=== PATIENT | female | born 1950 | race Caucasian/White ===

== ENCOUNTER → 2016-04-09 | Outpatient (CLI) | payer BC ==
[~2016-04-09] MED LIST: ASPEC325 PO; CLC100 PO; MEDLIST; MULT-506 PO; OMEG10007 PO; OXYC-57 PO; SULF800T23 PO; THY/60 PO
--- NOTE | 2016-04-09 09:38 | DIAGNOSTIC IMAGING REPORT ---
RIGHT LOWER EXTREMITY VENOUS DOPPLER CLINICAL HISTORY: Right leg pain and swelling. COMPARISON STUDY: No previous studies for comparison. TECHNIQUE: Sonography of the deep venous system of the right lower extremity was performed. Compression and augmentation were evaluated. FINDINGS: The right common femoral, superficial femoral and popliteal veins were compressible. Augmentation was normal. Flow was shown within the deep calf vessels. IMPRESSION: No evidence of deep venous thrombus within the right lower extremity. Electronically signed by: Delon Philippe M.D. 04/09/2016 9:36 AM Dictated Date/Time: 04/09/2016 9:17 AM
== END | disposition home or self-care (01) ==
LOC: C.ULTR 08:57
PROVIDERS: ATTEND Family Medicine
DX: M79.661 Pain in right lower leg (principal)

== ENCOUNTER → 2016-04-09 | Outpatient (CLI) | payer BC ==
--- NOTE | 2016-04-09 08:50 | DIAGNOSTIC IMAGING REPORT ---
RIGHT HIP UNILATERAL 2 VIEWS CLINICAL HISTORY: Right hip pain. COMPARISON: None FINDINGS: Alignment of the right hip is anatomic. There is no acute fracture. Joint spaces preserved. There is mild osteophytosis. No osseous lesion is identified. IMPRESSION: 1. Mild osteoarthritis of the right hip. 2. No fracture. Electronically signed by: Delon Philippe M.D. 04/09/2016 8:48 AM Dictated Date/Time: 04/09/2016 8:47 AM
== END | disposition home or self-care (01) ==
LOC: C.RAD1850 08:34
PROVIDERS: ATTEND Family Medicine
DX: M16.11 Unilateral primary osteoarthritis, right hip (principal); M79.661 Pain in right lower leg

== ENCOUNTER → 2016-05-08 | Outpatient (CLI) | payer BC | END | disposition home or self-care (01) | LOC: C.PAPS 14:41 | PROVIDERS: ATTEND Obstetrics & Gynecology | DX: Z12.4 Encounter for screening for malignant neoplasm of cervix (principal) ==

== ENCOUNTER → 2016-08-06 | Outpatient (CLI) | payer BC | END | disposition home or self-care (01) | LOC: C.LAB 08:30 | PROVIDERS: ATTEND Family Medicine | DX: R53.81 Other malaise (principal) ==

== ENCOUNTER → 2016-11-20 | Outpatient (CLI) | payer BC ==
--- NOTE | 2016-11-20 16:08 | MAMMOGRAPHY REPORT ---
UNILATERAL LEFT DIGITAL SCREENING MAMMOGRAM TOMOSYNTHESIS WITH CAD: 11/20/2016 CLINICAL HISTORY: Asymptomatic. Personal history of breast cancer. TECHNIQUE: Breast tomosynthesis in addition to standard 2D mammography was performed. Current study was also evaluated with a Computer Aided Detection (CAD) system. Left CC and MLO 2-D and tomosynthes is images were obtained. COMPARISON: Comparison is made to exams dated: 11/05/2015 mammogram, 10/29/2014 mammogram, 10/23/2013 art mogram, 10/17/2012 mammogram, 02/17/2012 mammogram, and 01/21/2011 mammogram - [facility] enter. BREAST COMPOSITION: There are scattered areas of fibroglandular density in the left breast. FINDINGS: There are no suspicious masses, calcifications, or areas of architectural distortion noted within the left breast. There has been no significant interval change compared to prior exams. Two biopsy marker clips are again noted in the left upper outer quadrant. Surgical clips are also noted in the left upper outer quadrant. A few scattered benign-appearing calcifications are stable. IMPRESSION: ACR BI-RADS CATEGORY 2: BENIGN There is no mammographic evidence of malignancy. A 1 year screening mammogram is recommended. The pa tient will receive written notification of the results. Approximately 10% of breast cancers are not detected with mammography. A negative mammographic report should not delay biopsy if a clinically suggestive mass is present. Manisha Guevara M.D. /:11/20/2016 15:43:27 Bottle Labeler: Ari FIERRO)(Talya), [facility] letter sent: Normal 1/2 BI-RADS Code: ACR BI-RADS Category 2: Benign
== END | disposition home or self-care (01) ==
LOC: C.MAMM 14:04
PROVIDERS: ATTEND Family Medicine
DX: Z12.31 Encounter for screening mammogram for malignant neoplasm of breast (principal); Z85.3 Personal history of malignant neoplasm of breast; Z90.11 Acquired absence of right breast and nipple

== ENCOUNTER → 2017-11-08 | Outpatient (CLI) | payer BC ==
--- NOTE | 2017-11-08 10:46 | DIAGNOSTIC IMAGING REPORT ---
L-SPINE MIN 4 VIEWS ROUTINE HISTORY: Pain LOWER BACK PAIN COMPARISON: None. FINDINGS: There is no fracture. Mild scoliosis. Mild/moderate degenerative disc change throughout. IMPRESSION: Degenerative change. No acute process. The above report was generated using voice recognition software. It may contain grammatical, syntax or spelling errors. Electronically signed by: Seb Chicas M.D. 11/08/2017 10:45 AM Dictated Date/Time: 11/08/2017 10:44 AM
== END | disposition home or self-care (01) ==
LOC: C.RAD1850 10:31
PROVIDERS: ATTEND Family Medicine
DX: M54.5 Low back pain (principal)

== ENCOUNTER 2019-01-30 17:49 | Inpatient (IN) ==
[2019-01-30 18:48] LABS: Basophils # (auto) 0.03 K/uL (0-0.2); Basophils % (auto) 0.2 %; Eosinophils # (auto) 0.03 K/uL (0-0.5); Eosinophils % (auto) 0.2 %; Hematocrit (blood only) 42.6 % (37-47); Hemoglobin 14.8 g/dL (12.0-16.0); Immature Granulocytes # (auto) 0.04 K/uL (0.00-0.02); Immature Granulocytes % (auto) 0.3 %; Lymphocytes # (auto) 1.68 K/uL (1.2-3.4); Lymphocytes % (auto) 10.8 %; Mean Corpuscular Hemoglobin 32.8 pg (25-34); Mean Corpuscular Hgb Conc 34.7 g/dL (32-36); Mean Corpuscular Volume 94.5 fL (80-100); Mean Platelet Volume 9.1 fL (7.4-10.4); Monocytes # (auto) 0.82 K/uL (0.11-0.59); Monocytes % (auto) 5.3 %; Neutrophils # (auto) 12.97 K/uL (1.4-6.5); Neutrophils % (auto) 83.2 %; Platelet Count 209 K/uL (130-400); RDW Standard Deviation 48.5 fL (36.4-46.3); Red Blood Count 4.51 M/uL (4.2-5.4); White Blood Count 15.57 K/uL (4.8-10.8)
--- NOTE | 2019-01-30 18:48 | CT Scan Report ---
CT abd pelvis wo con CT DOSE: 299.83 mGy.cm HISTORY: Flank pain RLQ pain eval for stone/appe TECHNIQUE: Multiaxial CT images of the abdomen and pelvis were performed without contrast. A dose lo wering technique was utilized adhering to the principles of ALARA. COMPARISON STUDY: None. FINDINGS: Lungs are clear. Liver spleen and pancreas are unremarkable. Kidneys are considered negative for hydronephrosis. No evidence for gallbladder contraction. The upper abdominal pattern is nonobstructive. There are moderate infiltrative changes in the right lower quadrant. The appendix moderately distende d and contains a 8 mm appendicolith. Maximum diameter of the appendix is 8 mm. There is moderate periappendiceal infiltrative change. No evidence for abscess collection or obstruction. Bladder is midline. There is no free fluid within the pelvic cul-de-sac. IMPRESSION: 1. Acute appendicitis. 2. The appendix demonstrates an increased diameter to 8 mm, an appendicolith, as well as moderate per iappendiceal infiltrative change. 3. No evidence for abscess collection or obstruction. The above report was generated using voice recognition software. It may contain grammatical, syntax or spelling errors. Electronically signed by: Seb Chicas M.D. 01/30/2019 6:45 PM
[2019-01-30 19:02] LABS: Albumin Level 3.6 gm/dl (3.4-5.0); BUN Creatinine Ratio 17.4 (10-20); Calcium 9.5 mg/dl (8.5-10.1); Creatinine Clr Calc Pharmacy 67.9 ml/min; Est GFR (African American) 103.2; Potassium 3.6 mmol/L (3.5-5.1)
[2019-01-30 19:05] LABS: Albumin Globulin Ratio 1.1 (0.9-2); Bilirubin,Total 0.6 mg/dl (0.2-1); Globulin 3.4 gm/dl (2.5-4.0)
--- NOTE | 2019-01-30 19:10 | XRay Report ---
XR chest 1V portable CLINICAL HISTORY: preop COMPARISON STUDY: No previous studies for comparison. FINDINGS: The bones soft tissues and hemidiaphragms are normal. The cardiomediastinal silhouette is n ormal. The lungs are clear. The pulmonary vasculature is normal. IMPRESSION: Negative chest. The above report was generated using voice recognition software. It may contain grammatical, syntax or spelling errors. Electronically signed by: Seb Chicas M.D. 01/30/2019 7:09 PM
[2019-01-30 19:15] LABS: Appearance Urine Clear (Clear); Bacteria Urine Automated Negative (Negative); Bilirubin Urine Negative (Negative); Blood Urine Trace (Negative); Color Urine Yellow; Glucose Urine UA Negative (Negative); Ketones Urine 1+ (Negative); Leukocyte Esterase Urine Trace (Negative); Nitrite Urine Negative (Negative); Protein Urine Negative (Negative); Specific Gravity Urine 1.015 (1.000-1.030); Urobilinogen Urine Negative (Negative); pH Urine 6.5 (4.5-7.5)
--- NOTE | 2019-01-30 19:54 | History & Physical Report ---
Date of Service January 30, 2019 Assessment & Plan (1) Appendicitis: This patient's history, physical exam, laboratory data and CT scan of which I reviewed the images as well as the report are all consistent with acute appendicitis with an appendicolith. I recommended laparoscopic appendectomy. I explained the possible need to convert to an open procedure. I explained the possible complications associated with these procedures and she understands. She has signed a consent form. History of Present Illness Chief Complaint: Right lower quadrant pain Primary Care Provider: Jaqueline Ortiz DO This is a 68-year-old female who presented to the emergency room with complaint of right lower quadrant pain that began 2 days ago. It was intermittent at first but then it became more continuous and located in the right lower quadrant. It is sharp at times but it is mostly a dull ache. It radiates around to her back on occasion. She has never had pain like this before. It is exacerbated by motion. She has no fever or chills with this. She had no nausea or vomiting. She had diarrhea this morning but there was no melena or hematoc hezia. She denies dysuria and hematuria. Allergies Allergy/AdvReac Type Severity Reaction Status Date / Time Penicillins Allergy Intermediate RASH Verified 01/30/19 19:48 Home Medications Home Medications Medication Instructions Recorded Confirmed Type Thyroid Supplement 1 tab PO DAILY 01/30/19 01/30/19 History calcium carb-magnesium carb 1 tab PO DAILY 01/30/19 01/30/19 History cholecalciferol (vitamin D3) 0 unit PO DAILY 01/30/19 01/30/19 History [Vitamin D3] multivitamin 1 tab PO DAILY 01/30/19 01/30/19 History Past Med/Surg History Social History Feels Safe at Home: Yes Smoking Status: Former smoker Physical Exam Constitutional: no acute distress Respiratory: normal respiratory effort, lungs clear to auscultation Cardiovascular: Rate/Rhythm: regular rate and regular rhythm Gastrointestinal (Abdomen): Inspection/Auscultation: abdomen normal to inspection; abdomen not distended Percussion/Palpation: + abdomen tender (Right lower quadrant) and abdomen soft Skin: no rashes, warm and dry Lymphatic: no cervical lymphadenopathy Results & Data Vital Signs (Past 12 Hours) Vital Signs Temp Pulse Resp BP Pulse Ox 01/30/19 18:34 96 01/30/19 17:45 37.3 C 99 H 18 146/92 H 97 Laboratory Results 01/30/19 01/30/19 01/30/19 Range/Units 18:31 18:31 17:22 WBC 15.57 H (4.8-10.8) K/uL RBC 4.51 (4.2-5.4) M/uL Hgb 14.8 (12.0-16.0) g/dL Hct 42.6 (37-47) % MCV 94.5 (80-100) fL MCH 32.8 (25-34) pg MCHC 34.7 (32-36) g/dL RDW Std Deviation 48.5 H (36.4-46.3) fL RDW Coeff of Mihir 14.0 (11.5-14.5) % Plt Count 209 (130-400) K/uL MPV 9.1 (7.4-10.4) fL Immature Gran % (Auto) 0.3 % Neut % (Auto) 83.2 % Lymph % (Auto) 10.8 % [place] % (Auto) 5.3 % Eos % (Auto) 0.2 % Baso % (Auto) 0.2 % Immature Gran # (Auto) 0.04 H (0.00-0.02) K/uL Neut # (Auto) 12.97 H (1.4-6.5) K/uL Lymph # (Auto) 1.68 (1.2-3.4) K/uL [place] # (Auto) 0.82 H (0.11-0.59) K/uL Eos # (Auto) 0.03 (0-0.5) K/uL Baso # (Auto) 0.03 (0-0.2) K/uL Sodium 137 (136-145) mmol/L Potassium 3.6 (3.5-5.1) mmol/L Chloride 105 (98-107) mmol/L Carbon Dioxide 23 (21-32) mmol/L Anion Gap 9.0 (3-11) BUN 12 (7-18) mg/dl Creatinine 0.70 (0.6-1.2) mg/dl Est Cr Clr Drug Dosing 67.9 ml/min Est GFR ( Amer) 103.2 Est GFR (Non-Af Amer) 89.0 BUN/Creatinine Ratio 17.4 (10-20) Glucose 127 H (70-99) mg/dl Calcium 9.5 (8.5-10.1) mg/dl Total Bilirubin 0.6 (0.2-1) mg/dl AST 8 L (15-37) U/L ALT 23 (12-78) U/L Alkaline Phosphatase 58 (45-117) U/L Total Protein 7.0 (6.4-8.2) gm/dl Albumin 3.6 (3.4-5.0) gm/dl Globulin 3.4 (2.5-4.0) gm/dl Albumin/Globulin Ratio 1.1 (0.9-2) Lipase 62 L (73-393) U/L Urine Color Yellow Urine Appearance Clear (Clear) Urine pH 6.5 (4.5-7.5) Ur Specific [place] 1.015 (1.000-1.030) Urine Protein Negative (Negative) Urine Glucose (UA) Negative (Negative) Urine Ketones 1+ H (Negative) Urine Blood Trace H (Negative) Urine Nitrite Negative (Negative) Urine Bilirubin Negative (Negative) Urine Urobilinogen Negative (Negative) Ur Leukocyte Esterase Trace H (Negative) Urine WBC (Auto) 1-5 (0-5) /hpf Urine RBC (Auto) 5-10 H (0-4) /hpf U Hyaline Cast (Auto) 1-5 (0-5) /lpf U Epithel Cells (Auto) 5-10 H (0-5) /lpf Urine Bacteria (Auto) Negative (Negative) Diagnostic Findings CT abd pelvis wo con CT DOSE: 299.83 mGy.cm HISTORY: Flank pain RLQ pain eval for stone/appe TECHNIQUE: Multiaxial CT images of the abdomen and pelvis were performed without contrast. A dose lowering technique was utilized adhering to the principles of ALARA. COMPARISON STUDY: None. FINDINGS: Lungs are clear. Liver spleen and pancreas are unremarkable. Kidneys are considered negative for hydronephrosis. No evidence for gallbladder contraction. The upper abdominal pattern is nonobstructive. There are moderate infiltrative changes in the right lower quadrant. The appendix moderately distended and contains a 8 mm appendicolith. Maximum diameter of the appendix is 8 mm. There is moderate periappendiceal infiltrative change. No evidence for abscess collection or obstruction. Bladder is midline. There is no free fluid within the pelvic cul-de-sac. IMPRESSION: 1. Acute appendicitis. 2. The appendix demonstrates an increased diameter to 8 mm, an appendicolith, as well as moderate periappendiceal infiltrative change. 3. No evidence for abscess collection or obstruction.
[2019-01-30] MEDS ORDERED: fentaNYL citrate 100 MCG/2 ML VIAL IV PRN (20:02)
[2019-01-30] MEDS ORDERED: ONDANSETRON INJ 2 MG/ML 2 ML VIAL IV PRN ×2 (20:02→22:41)
[2019-01-30] MEDS ORDERED: PROMETHAZINE HCL 6.25 MG in SODIUM CHLORIDE 0.9% 50 ML IV PRN (20:02)
[2019-01-30] MEDS ORDERED: ATROPINE SULFATE 0.1 MG/ML 10ML SYR IV PRN (20:02)
[2019-01-30] MEDS ORDERED: ePHEDrine sulfate 50 MG/ML AMP IV PRN (20:02)
--- NOTE | 2019-01-30 20:05 | Anesthesiology Consultation ---
Date of Service January 30, 2019 hypothyroidism Assessment & Plan (1) Appendicitis: Chart Review Chart Review: Acceptable Risk for Surgery and Patient NOT seen in Pre Admission Testing Consults Requested none Teaching & Discussion Patient desires a narcotic free anesthetic, concerned about hx of nausea with narcotics. We will do our best to provide this, but will make short acting narcotics available in pacu. ASA [id number] Proposed Anesthesia Risk / Benefits Reviewed With: PT / POA / Parent / Guardian, Accepts Plan and Informed Consent Obtained History Surgery Operation Date: 01/30/19 20:00 Proposed Procedures p Laparoscopic Appendectomy - Seb Parr MD Height/Weight Height: 5 ft 2.5 in Weight: 63 kg Allergies Allergy/AdvReac Type Severity Reaction Status Date / Time Penicillins Allergy Intermediate RASH Verified 01/30/19 19:48 Medications Home Medications Medication Instructions Recorded Confirmed Last Taken Thyroid Supplement 1 tab PO DAILY 01/30/19 01/30/19 Unknown calcium carb-magnesium carb 1 tab PO DAILY 01/30/19 01/30/19 Unknown cholecalciferol (vitamin D3) 0 unit PO DAILY 01/30/19 01/30/19 Unknown [Vitamin D3] multivitamin 1 tab PO DAILY 01/30/19 01/30/19 Unknown NPO Date Last Intake of Fluids: 01/30/19 Time Last Intake of Fluids: 16:45 Last Intake of Fluids Comment: sips of water Date Last Intake of Solids: 01/30/19 Time Last Intake of Solids: 11:00 Last Intake of Solids Comment: sandwhich Exercise / Class Metabolic Activity II 4-5 Yardwork/Stairs/Walk up hill Past Anesthesia History No Hx of Anesthesia Complications and No Family Hx of Anesthesia Complications History of PONV No Hx of PONV and No Hx of Motion Sickness Social History Smoking Status: Former smoker Physical Exam Vital Signs Last Vital Signs Temp 37.3 C 01/30/19 17:45 Pulse 78 01/30/19 19:52 Resp 20 01/30/19 19:52 BP 153/103 H 01/30/19 19:52 Pulse Ox 98 01/30/19 19:52 ENMT Mouth: no dentition abnormality Thyromental Distance: > or= 3.5 Finger Breadths Mallampati Class: II Neck normal visual inspection Respiratory normal respiratory effort Auscultation: lungs clear to auscultation bilaterally Cardiovascular Rate/Rhythm: regular rate and regular rhythm Psychiatric Orientation: alert Testing Laboratory Results 01/30/19 18:31 01/30/19 18:31 Urine Color Yellow 01/30/19 17:22 Urine Appearance Clear (Clear) 01/30/19 17:22 Urine pH 6.5 (4.5-7.5) 01/30/19 17:22 Ur Specific [place] 1.015 (1.000-1.030) 01/30/19 17:22 Urine Protein Negative (Negative) 01/30/19 17:22 Urine Glucose (UA) Negative (Negative) 01/30/19 17:22 Urine Ketones 1+ (Negative) H 01/30/19 17:22 Urine Nitrite Negative (Negative) 01/30/19 17:22 Ur Leukocyte Esterase Trace (Negative) H 01/30/19 17:22 Urine WBC (Auto) 1-5 /hpf (0-5) 01/30/19 17:22 Urine RBC (Auto) 5-10 /hpf (0-4) H 01/30/19 17:22 U Hyaline Cast (Auto) 1-5 /lpf (0-5) 01/30/19 17:22 U Epithel Cells (Auto) 5-10 /lpf (0-5) H 01/30/19 17:22 Urine Bacteria (Auto) Negative (Negative) 01/30/19 17:22
[2019-01-30] MEDS ORDERED: PHENYLEPHRINE HCL 10 MG/ML VIAL ONE (20:06)
[2019-01-30] MEDS ORDERED: ePHEDrine sulfate 50 MG/ML AMP ONE (20:06)
[2019-01-30] MEDS ORDERED: SUCCINYLCHOLINE CHLORIDE 20 MG/ML 10 ML VIAL ONE (20:06)
[2019-01-30] MEDS ORDERED: DEXAMETHASONE SOD INJ 4 MG/ML VIAL ONE (20:06)
[2019-01-30] MEDS ORDERED: ONDANSETRON INJ 2 MG/ML 2 ML VIAL ONE (20:06)
[2019-01-30] MEDS ORDERED: GLYCOPYRROLATE 0.2 MG/ML VIAL ONE (20:06)
[2019-01-30] MEDS ORDERED: LIDOCAINE HCL 2% 2 ML VIAL/AMP(20MG/ML) INFIL ONE ×2 (20:06→20:40)
[2019-01-30] MEDS ORDERED: PROPOFOL IV EMULSION 10 MG/ML 20 ML VIAL IV ONE (20:06)
[2019-01-30] MEDS ORDERED: NEOSTIGMINE METHYLSULFATE 5 MG/5 ML SYR ONE (20:06)
[2019-01-30] MEDS ORDERED: fentaNYL citrate 100 MCG/2 ML VIAL ONE (20:07)
[2019-01-30] MEDS ORDERED: KETAMINE HCL INJ 50 MG/ML 10 ML VIAL ONE (20:12)
[2019-01-30] MEDS ORDERED: BUPIVACAINE 0.5 % 5 MG/1 ML MPF 30ML VIAL ONE (20:15)
[2019-01-30] MEDS ORDERED: HEPARIN (PORCINE) 1000 UNIT/ML 10 ML (CATH LAB USE ONLY) ONE (20:15)
[2019-01-30] MEDS ORDERED: ACETAMINOPHEN 1000 MG/100 ML IV IV ONE (20:19)
[2019-01-30] MEDS ORDERED: CLINDAMYCIN PHOS 300 MG/2 ML VIAL ONE (20:24)
[2019-01-30] MEDS ORDERED: CLINDAMYCIN 900 MG in DEXTROSE 5% 100 ML IV SCH (20:30)
[2019-01-30] MEDS ORDERED: METOPROLOL TARTRATE 1 MG/ML VIAL IV ONE (20:40)
[2019-01-30] MEDS ORDERED: ESMOLOL HCL INJ 10 MG/ML 10ML VIAL IV ONE (20:40)
--- NOTE | 2019-01-30 21:19 | Post Operative Brief Note ---
Immediate Post Op Note v1 Date of Surgery January 30, 2019 Pre & Post Diagnosis Operation Date: 01/30/19 20:00 Pre-Op Diagnosis: Appendicitis Post-Op Diagnosis: Appendicitis I identified the patient and participated in the time-out.: Yes Procedure Operation Date: 01/30/19 20:00 Actual Procedures p Laparoscopic Appendectomy(Not Applicable) - Seb Parr MD Surgeon Seb Parr MD Assistant Professor Of Nursing None Estimated Blood Loss 7 Findings Consistent with Post-Op Diagnosis Specimens Apppendix Drains Kurtz Catheter and Igor-Saha Drain (10 mm flat) Anesthesia Type General Complications none
--- NOTE | 2019-01-30 21:48 | Anesthesiology Progress Note ---
Date of Service January 30, 2019 Anesthesia Post Procedure Vital Signs Vital Signs: Temp Pulse Pulse Resp BP BP Pulse Ox 01/30/19 21:45 76 16 131/63 100 01/30/19 21:35 78 18 130/70 100 01/30/19 21:28 36.2 C L 94 H 20 131/72 100 01/30/19 19:52 78 20 153/103 H 98 01/30/19 18:34 96 01/30/19 17:45 37.3 C 99 H 18 146/92 H 97 Pain Intensity Abdomen: Pain Intensity: 4 Transfer of Care Handoff Completed per policy Notes Mental Status: alert / awake / arousable Patient Amnestic to Procedure: Yes Nausea / Vomiting: adequately controlled Pain: adequately controlled Airway Patency, RR, SpO2: stable & adequate BP & HR: stable & adequate Hydration State: stable & adequate Anesthetic Complications: no major complications apparent
[2019-01-30] MEDS ORDERED: KETOROLAC 30 MG/ML VIAL IV PRN (22:51)
[2019-01-30] MEDS ORDERED: KETOROLAC TROMETHAMINE 15 MG/ML VIAL IV PRN (22:52)
--- NOTE | 2019-01-30 23:13 | Emergency Department Note ---
Entered by Lexi Howard acting as a scribe for Abelardo Tang MD History of Present Illness General Chief complaint: Abdominal Pain Stated complaint: LOWER RIGHT AB PAIN Source: patient History of Present Illness Onset (ago): day(s) 2 Location: abdomen (RLQ pain) Radiation: back (right side) Severity: severe Pain Consistency: + intermittent Maximum Pain Intensity: 6 Quality: + sharp and + other (cramping) Relieved By: + movement and + other (bowel movement) Associated symptoms: + denies other symptoms (hematuria, dysuria, frequent urination) and + other (diarrhea); no fever/chills and no nausea/vomiting The patient is a 68 year old female with no PMHx indicated on Evomail who presents to the Emergency Room with complaints of RLQ pain. The patient explains that she began to experience intense intermittent RLQ pain 2 days ago at 6PM. She also reports associated diarrhea and feeling "bottled up with gas". She describes this pain as a sharp "pin" with heavy cramping that radiates to the right side of her back. 1 day ago she reports that she couldn't eat due to pain. However, today she states that she managed to get up and eat a sandwich at 11AM and drank a lot of water which did not worsen her pain.The patient explains that she feels better in the mornings and that this morning she felt a lot better than the past 2 days. She also states that she finds relief from her pain after passing stool and with movement. The patient reports that today her abdomen feels tender to touch. Of note, she states that she still has her appendix and is currently not treated for HTN. She denies hematuria, dysuria, frequent urin ation, vomiting, hematochezia, known fever, history of kidney stones, or recent travel. Additionally, she reports that her is not experiencing the same diarrheal symptoms, The patient offers no additional complaints at this time. Home Medications Home Medications Medication Instructions Recorded Confirmed Type Thyroid Supplement 1 tab PO DAILY 01/30/19 01/30/19 History calcium carb-magnesium carb 1 tab PO DAILY 01/30/19 01/30/19 History cholecalciferol (vitamin D3) 0 unit PO DAILY 01/30/19 01/30/19 History [Vitamin D3] multivitamin 1 tab PO DAILY 01/30/19 01/30/19 History Allergies Allergy/AdvReac Type Severity Reaction Status Date / Time Penicillins Allergy Intermediate RASH Verified 01/30/19 19:48 Past Med/Surg History Medical History No significant past medical history Social History Preferred Language: Greenlandic Communication Ability: Effective Thread Clipper Required: No Beliefs That Will Affect Care: None Current Living Situation: Spouse Feels Safe at Home: Yes Safety Concerns: Feels Safe At This Time Smoking Status: Former smoker Hx Alcohol Use: Yes Alcohol type: beer and wine Hx Substance Use: No Review of Systems See HPI for pertinent positives & negatives. and A total of 10 systems reviewed and were otherwise negative Physical Exam Vital Signs Vital Signs - 24 hr 01/30/19 17:45 01/30/19 18:34 01/30/19 19:52 Temperature 37.3 C Temperature Source Oral Sepsis Recent Fever Within 48 Hours No Sepsis Action Taken by Nursing No Action Required Pulse Rate 99 H 78 Pulse Rate [Apical] Pulse Rhythm Regular Pulse Rhythm [Apical] Pulse Strength Normal Respiratory Rate 18 20 Respiratory Effort / Characteristics Non-Labored Spontaneous Respiratory Depth Normal Respiratory Pattern Regular Blood Pressure 146/92 H 153/103 H Blood Pressure [Left Arm] Blood Pressure Mean 110 Blood Pressure Mean [Left Arm] Blood Pressure Position Lying Blood Pressure Position [Left Arm] Pulse Oximetry 97 96 98 Oxygen Delivery Method Room Air Room Air Room Air Oxygen Flow Rate 01/30/19 21:28 01/30/19 21:35 01/30/19 21:45 Temperature 36.2 C L Temperature Source Temporal Artery Scan Sepsis Recent Fever Within 48 Hours Sepsis Action Taken by Nursing Pulse Rate Pulse Rate [Apical] 94 H 78 76 Pulse Rhythm Pulse Rhythm [Apical] Regular Regular Regular Pulse Strength Respiratory Rate 20 18 16 Respiratory Effort / Characteristics Non-Labored Spontaneous Non-Labored Spontaneous Non-Labored Spontaneous Respiratory Depth Normal Normal Normal Respiratory Pattern Regular Regular Regular Blood Pressure Blood Pressure [Left Arm] 131/72 130/70 131/63 Blood Pressure Mean Blood Pressure Mean [Left Arm] 91 90 85 Blood Pressure Position Blood Pressure Position [Left Arm] Lying Lying Lying Pulse Oximetry 100 100 100 Oxygen Delivery Method Oxymask Oxymask Oxymask Oxygen Flow Rate 5 5 3 01/30/19 21:55 01/30/19 22:05 Temperature 36.6 C Temperature Source Temporal Artery Scan Sepsis Recent Fever Within 48 Hours Sepsis Action Taken by Nursing Pulse Rate Pulse Rate [Apical] 73 69 Pulse Rhythm Pulse Rhythm [Apical] Regular Regular Pulse Strength Respiratory Rate 14 15 Respiratory Effort / Characteristics Non-Labored Spontaneous Non-Labored Spontaneous Respiratory Depth Normal Normal Respiratory Pattern Regular Regular Blood Pressure Blood Pressure [Left Arm] 128/80 126/71 Blood Pressure Mean Blood Pressure Mean [Left Arm] 96 89 Blood Pressure Position Blood Pressure Position [Left Arm] Lying Lying Pulse Oximetry 98 97 Oxygen Delivery Method Room Air Room Air Oxygen Flow Rate Constitutional: Vital signs reviewed. Eyes: Pupils are equal round reactive to light. Conjunctiva are noninjected. ENT: Pharynx is clear without erythema or exudate. Mucous membranes are moist. Neck supple without meningeal signs. Respiratory: Clear to auscultation bilaterally. Breath sounds are equal bilaterally. Cardiovascular: Regular rate and rhythm. No rubs or gallops. GI: Soft, nondistended. RLQ tenderness. No guarding. Bowel sounds are present. Musculoskeletal: No peripheral edema. No lower extremity tenderness. No CVA tenderness. Integumentary: No cyanosis. Neurological: The patient is awake and alert. No focal deficits. Psychiatric: Normal affect. Course 1800: Past medical records reviewed. The patient was evaluated in room A11B. A complete history and physical exam was performed. 1853: Spoke with patient regarding test results. Paged Dr. Parr from surgery. 0: Dr. Parr accepts patient for surgery. The patient verbally expressed understanding and agreement of the treatment plan. The patient will be evaluated for further treatment. Administered Medications Discontinued Medications Bupivacaine HCl (Marcaine 0.5% Mpf) Confirm Administered Dose 30 ml .ROUTE .STK- MED ONE Stop: 01/30/19 20:16 Last Admin: 01/30/19 21:15 Dose: 24 ml Documented by: [id number] Heparin Sodium (Porcine) (Heparin Iv Bolus (Explosives Detonator Use Only)) Confirm Administered Dose 10,000 units .ROUTE .STK-MED ONE Stop: 01/30/19 20:16 Last Admin: 01/30/19 21:02 Dose: 5,000 units Documented by: [id number] Clindamycin Phosphate 900 mg/ (Dextrose) 106 mls @ 100 mls/hr IV ONCE FORTUNATO Stop: 01/31/19 20:29 Last Infusion: 01/30/19 22:43 Dose: 0 mls/hr Documented by: [id number] Admin: 01/30/19 20:21 Dose: 100 mls/hr Documented by: [id number] Medical Decision Making Differential Diagnosis Differential diagnosis includes but is not limited to appendicitis perforation, abscess, colitis, kidney stone Medical Records Attestation: I reviewed the patient's medical records. I did perform a limited focused review of portions of the patient's old chart on the electronic medical record. The patient has had no recent pertinent visits to this hospital. Home Medications Current Medication List: was personally reviewed by me Laboratory Data Attestation: I reviewed the patient's lab results. Result diagrams: 01/30/19 18:31 01/30/19 18:31 Lab Results 01/30/19 01/30/19 01/30/19 Range/Units 17:22 18:31 18:31 WBC 15.57 H (4.8-10.8) K/uL RBC 4.51 (4.2-5.4) M/uL Hgb 14.8 (12.0-16.0) g/dL Hct 42.6 (37-47) % MCV 94.5 (80-100) fL MCH 32.8 (25-34) pg MCHC 34.7 (32-36) g/dL RDW Std Deviation 48.5 H (36.4-46.3) fL RDW Coeff of Mihir 14.0 (11.5-14.5) % Plt Count 209 (130-400) K/uL MPV 9.1 (7.4-10.4) fL Immature Gran % (Auto) 0.3 % Neut % (Auto) 83.2 % Lymph % (Auto) 10.8 % [place] % (Auto) 5.3 % Eos % (Auto) 0.2 % Baso % (Auto) 0.2 % Immature Gran # (Auto) 0.04 H (0.00-0.02) K/uL Neut # (Auto) 12.97 H (1.4-6.5) K/uL Lymph # (Auto) 1.68 (1.2-3.4) K/uL [place] # (Auto) 0.82 H (0.11-0.59) K/uL Eos # (Auto) 0.03 (0-0.5) K/uL Baso # (Auto) 0.03 (0-0.2) K/uL Sodium 137 (136-145) mmol/L Potassium 3.6 (3.5-5.1) mmol/L Chloride 105 (98-107) mmol/L Carbon Dioxide 23 (21-32) mmol/L Anion Gap 9.0 (3-11) BUN 12 (7-18) mg/dl Creatinine 0.70 (0.6-1.2) mg/dl Est Cr Clr Drug Dosing 67.9 ml/min Est GFR ( Amer) 103.2 Est GFR (Non-Af Amer) 89.0 BUN/Creatinine Ratio 17.4 (10-20) Glucose 127 H (70-99) mg/dl Calcium 9.5 (8.5-10.1) mg/dl Total Bilirubin 0.6 (0.2-1) mg/dl AST 8 L (15-37) U/L ALT 23 (12-78) U/L Alkaline Phosphatase 58 (45-117) U/L Total Protein 7.0 (6.4-8.2) gm/dl Albumin 3.6 (3.4-5.0) gm/dl Globulin 3.4 (2.5-4.0) gm/dl Albumin/Globulin Ratio 1.1 (0.9-2) Lipase 62 L (73-393) U/L Urine Color Yellow Urine Appearance Clear (Clear) Urine pH 6.5 (4.5-7.5) Ur Specific [place] 1.015 (1.000-1.030) Urine Protein Negative (Negative) Urine Glucose (UA) Negative (Negative) Urine Ketones 1+ H (Negative) Urine Blood Trace H (Negative) Urine Nitrite Negative (Negative) Urine Bilirubin Negative (Negative) Urine Urobilinogen Negative (Negative) Ur Leukocyte Esterase Trace H (Negative) Urine WBC (Auto) 1-5 (0-5) /hpf Urine RBC (Auto) 5-10 H (0-4) /hpf U Hyaline Cast (Auto) 1-5 (0-5) /lpf U Epithel Cells (Auto) 5-10 H (0-5) /lpf Urine Bacteria (Auto) Negative (Negative) Imaging Data Radiologist's Impression: Radiology results as stated below per my review and the radiologist's interpretation: CT abd pelvis wo con CT DOSE: 299.83 mGy.cm HISTORY: Flank pain RLQ pain eval for stone/appe TECHNIQUE: Multiaxial CT images of the abdomen and pelvis were performed without contrast. A dose lowering technique was utilized adhering to the principles of ALARA. COMPARISON STUDY: None. FINDINGS: Lungs are clear. Liver spleen and pancreas are unremarkable. Kidneys are considered negative for hydronephrosis. No evidence for gallbladder contraction. The upper abdominal pattern is nonobstructive. There are moderate infiltrative changes in the right lower quadrant. The appendix moderately distended and contains a 8 mm appendicolith. Maximum diameter of the appendix is 8 mm. There is moderate periappendiceal infiltrative change. No evidence for abscess collection or obstruction. Bladder is midline. There is no free fluid within the pelvic cul-de-sac. IMPRESSION: 1. Acute appendicitis. 2. The appendix demonstrates an increased diameter to 8 mm, an appendicolith, as well as moderate periappendiceal infiltrative change. 3. No evidence for abscess collection or obstruction. The above report was generated using voice recognition software. It may contain grammatical, syntax or spelling errors. Electronically signed by: Seb Chicas M.D. 01/30/2019 6:45 PM XR chest 1V portable CLINICAL HISTORY: preop COMPARISON STUDY: No previous studies for comparison. FINDINGS: The bones soft tissues and hemidiaphragms are normal. The cardiomediastinal silhouette is normal. The lungs are clear. The pulmonary vasculature is normal. IMPRESSION: Negative chest. The above report was generated using voice recognition software. It may contain grammatical, syntax or spelling errors. Electronically signed by: Seb Chicas M.D. 01/30/2019 7:09 PM ECG Data Attestation: I personally reviewed and interpreted this ECG as follows: Indication: + abdominal pain and + other (pre-op EKG) Rate (beats per minute): 90 Rhythm: + sinus rhythm ECG ST segments: no ST elevation ECG Findings: + Other (non-specific ST changes laterally); no PVCs Blood Pressure Blood Pressure Findings: Elevated blood pressure Blood Pressure Disposition: further management by hospitalist [facility] Narrative I did evaluate the patient as noted above. Patient is presenting with right low er quadrant abdominal pain. Is concerned about possible kidney stone versus acute appendicitis. The patient was made n.p.o. She declined any pain or nausea medications. IV access was established. I did order a urine analysis. She does not have a UTI. I did order and review the patient's blood work as noted in the electronic medical record.Her white count is over 15,000. Labs are otherwise unremarkable. I did order a CT of the abdomen and pelvis. I did review the images myself as well as the radiology report as described above. She does have acute appendicitis without perforation or abscess. I did discuss the test results with the patient. I did discuss case with Dr. Parr of [facility] who will evaluate the patient for appendectomy. I did order preop twelve- lead EKG and chest x-ray as described above. Per my interpretation there is no acute ischemia on her twelve-lead EKG. Her chest x-ray is unremarkable. Impression & Plan Acute appendicitis Discharge Plan Visit Data *Final* Discharge Date/Time: 01/30/19 19:52 Chief Complaint: Abdominal Pain Stated Complaint: LOWER RIGHT AB PAIN ED Provider: Abelardo Tang Discharge Problem: Acute appendicitis Patient Disposition: Being Evaluated by Surgeon Discharge Instructions Interventions: ED Discharge Assessment Last Done: 01/30/19 19:52 Discharge Problem: Acute appendicitis Qualifiers: Acute appendicitis type: unspecified acute appendicitis type Qualified Code(s): K35.80 - Unspecified acute appendicitis The scribe's documentation has been prepared under my direction and personally reviewed by me in its entirety. I confirm that the note above accurately reflects all work, treatment, procedures, and medical decision making performed by me.
[2019-01-30] MEDS: CIPROFLOXACIN 400 MG/200 ML BAG IV SCH (23:19)
[2019-01-30] MEDS: D5W AND 1/2NSS + 20MEQ KCL 20 MEQ/1,000 ML BAG IV SCH (23:19)
[2019-01-30] MEDS: metroNIDAZOLE 500 MG/100 ML BAG IV SCH (23:19)
--- NOTE | 2019-01-31 00:29 | Operative Report ---
DATE OF OPERATION: 01/30/2019 PREOPERATIVE DIAGNOSIS: Acute appendicitis. POSTOPERATIVE DIAGNOSIS: Acute ruptured appendicitis. PROCEDURE: Laparoscopic appendectomy. SURGEON: Seb Parr MD FINDINGS: The appendix was adherent to the posterolateral abdominal wall, lying inferior to the cecum. There was a lot of inflammatory rind on the anterior aspect of the cecum. The terminal ileum also had some inflammatory rind and there was turbid fluid underlying the appendix which was extending down to posterior to the round ligament on the right. The appendix was hyperemic, mildly dilated and there were areas that grossly appeared gangrenous with an area of perforation in the distal two-thirds. The proximal one-third of the appendix and the base of the appendix as well as the cecum at the base of the appendix appeared normal. TECHNIQUE: The patient was given a general anesthetic and the area was prepped and draped in the usual sterile fashion. Transverse incision was made below the umbilicus, carried down through the subcutaneous tissue to the fascia which was grasped with 2 Steven clamps and incised between. The peritoneum was identified, incised, and the introducer was placed bluntly. The abdomen was then insufflated to a pressure of 15 mmHg with carbon dioxide. The lower midline introducer was placed under direct vision through small skin incision. Traction was placed superiorly on the cecum and the appendix was seen extending off the inferior side. The left lower quadrant introducer was placed under direct vision through small skin incisions. The patient was placed in an airplane left position. The terminal ileum was easily peeled off the appendix, but in doing so, there was turbid fluid seen in that area. This was removed using suction. The appendix was then densely adherent to the posterior abdominal wall and I had to elevate that using blunt and cautery dissection where appropriate. That allowed me to completely elevate the appendix and I was able to separate the base of the appendix away from the mesoappendix. The mesoappendix was divided using the Endo-BELEN stapler. That allowed me to confirm that I was at the base of the appendix which again appeared normal as did the cecum. The appendix was amputated using the Endo-BELEN. The appendix was placed into an Endobag and brought out through the left lower quadrant introducer sites. That introducer was replaced and the pelvis was irrigated and the irrigation was removed. The right lower quadrant was irrigated and irrigation was removed and any irrigation that entered the right upper quadrant was removed. A 10 mm Igor-Saha was then placed intraabdominally and a small stab incision was made in the right lower quadrant through which the Igor-Saha was brought out. It was placed along the lateral abdominal wall and into the pelvis. The drain was secured at the skin level with 3-0 nylon. The gas was allowed to escape and introducers were removed. The fascia of the umbilical and left lower quadrant introducer sites was closed with interrupted 0 Vicryl and skin of all the incisions was closed with 4-0 Monocryl in either an interrupted or running subcuticular fashion. The skin was anesthetized with 0.5% Marcaine. The skin was cleansed, dried, benzoin placed, Steri-Strips applied. Estimated blood loss was 7 mL. Sponge, needle and instrument counts were correct prior to closure. The patient tolerated the surgical procedure without complication and was transferred to recovery. I attest to the content of the Intraoperative Record and any orders documented therein. Any exception s are noted below.
[2019-01-31 05:22] LABS: Basophils # (auto) 0.01 K/uL (0-0.2); Basophils % (auto) 0.1 %; Hematocrit (blood only) 39.9 % (37-47); Hemoglobin 13.5 g/dL (12.0-16.0); Immature Granulocytes # (auto) 0.03 K/uL (0.00-0.02); Immature Granulocytes % (auto) 0.2 %; Lymphocytes # (auto) 1.02 K/uL (1.2-3.4); Lymphocytes % (auto) 6.4 %; Mean Corpuscular Hemoglobin 32.1 pg (25-34); Mean Corpuscular Hgb Conc 33.8 g/dL (32-36); Mean Platelet Volume 9.5 fL (7.4-10.4); Monocytes # (auto) 0.64 K/uL (0.11-0.59); Neutrophils % (auto) 89.3 %; Platelet Count 216 K/uL (130-400); RDW Coefficient of Variation 14.2 % (11.5-14.5); RDW Standard Deviation 48.7 fL (36.4-46.3)
[2019-01-31] MEDS: metroNIDAZOLE 500 MG/100 ML BAG IV SCH ×3 (05:51→22:15)
--- NOTE | 2019-01-31 08:16 | Anesthesiology Progress Note ---
Date of Service January 31, 2019 Anesthesia Post Procedure Vital Signs Vital Signs: Temp Pulse Pulse Pulse Resp BP BP 01/31/19 07:21 36.3 C L 81 16 135/80 01/31/19 04:03 36.6 C 66 18 97/55 L 01/31/19 01:29 36.8 C 73 16 124/71 01/31/19 00:38 36.8 C 69 17 113/66 01/30/19 23:33 36.6 C 67 17 118/68 01/30/19 22:56 36.5 C 73 16 127/73 01/30/19 22:05 69 15 126/71 01/30/19 21:55 36.6 C 73 14 128/80 01/30/19 21:45 76 16 131/63 01/30/19 21:35 78 18 130/70 01/30/19 21:28 36.2 C L 94 H 20 131/72 01/30/19 19:52 78 20 153/103 H 01/30/19 18:34 01/30/19 17:45 37.3 C 99 H 18 146/92 H Pulse Ox 01/31/19 07:21 95 01/31/19 04:03 95 01/31/19 01:29 94 01/31/19 00:38 96 01/30/19 23:33 95 01/30/19 22:56 97 01/30/19 22:05 97 01/30/19 21:55 98 01/30/19 21:45 100 01/30/19 21:35 100 01/30/19 21:28 100 01/30/19 19:52 98 01/30/19 18:34 96 01/30/19 17:45 97 Pain Intensity Abdomen: Pain Intensity: 4 (with coughing 7/10;) Notes Mental Status: alert / awake / arousable Patient Amnestic to Procedure: Yes Nausea / Vomiting: adequately controlled (pt has a history of PONV; did not have any after this case; ) Pain: adequately controlled Airway Patency, RR, SpO2: stable & adequate BP & HR: stable & adequate Hydration State: stable & adequate Anesthetic Complications: no major complications apparent
[2019-01-31] MEDS ORDERED: TRAMADOL HCL 50 MG TABLET PO PRN (08:29)
--- NOTE | 2019-01-31 08:33 | Surgery Progress Note ---
Date of Service January 31, 2019 Assessment & Plan (1) Appendicitis: POD # 0 s/p laparoscopic appendectomy, ruptured appendicitis -vitals stable, afebrile - leukocytosis stable at 16k - post op pain controlled - no n/v Plan: Regular diet PO Tylenol and Tramdol prn pain, continue Toradol ambulate incentive spirometry SCDs continue gabrielle drain if tolerates regular diet can decrease IV fluids slightly Dr. Parr has seen patient agrees with above Subjective feeling pretty well pain controlled with Toradol no n/v breakfast try just delivered urinating without difficulty Physical Exam Constitutional: WD/WN, vitals as above no acute distress Gastrointestinal (Abdomen): Inspection/Auscultation: + abdominal surgical drain present (serosanguineous) Skin: no rashes, warm and dry Psychiatric: A+Ox3, euthymic affect Results & Data Vital Signs (Past 12 Hours) Vital Signs Temp Pulse Pulse Resp BP Pulse Ox 01/31/19 07:21 36.3 C L 81 16 135/80 95 01/31/19 04:03 36.6 C 66 18 97/55 L 95 01/31/19 01:29 36.8 C 73 16 124/71 94 01/31/19 00:38 36.8 C 69 17 113/66 96 01/30/19 23:33 36.6 C 67 17 118/68 95 01/30/19 22:56 36.5 C 73 16 127/73 97 01/30/19 22:05 69 15 126/71 97 01/30/19 21:55 36.6 C 73 14 128/80 98 01/30/19 21:45 76 16 131/63 100 01/30/19 21:35 78 18 130/70 100 01/30/19 21:28 36.2 C L 94 H 20 131/72 100 Laboratory Results 01/31/19 01/30/19 01/30/19 Range/Units 04:34 18:31 18:31 WBC 16.00 H 15.57 H (4.8-10.8) K/uL RBC 4.20 4.51 (4.2-5.4) M/uL Hgb 13.5 14.8 (12.0-16.0) g/dL Hct 39.9 42.6 (37-47) % MCV 95.0 94.5 (80-100) fL MCH 32.1 32.8 (25-34) pg MCHC 33.8 34.7 (32-36) g/dL RDW Std Deviation 48.7 H 48.5 H (36.4-46.3) fL RDW Coeff of Mihir 14.2 14.0 (11.5-14.5) % Plt Count 216 209 (130-400) K/uL MPV 9.5 9.1 (7.4-10.4) fL Immature Gran % (Auto) 0.2 0.3 % Neut % (Auto) 89.3 83.2 % Lymph % (Auto) 6.4 10.8 % [place] % (Auto) 4.0 5.3 % Eos % (Auto) 0.0 0.2 % Baso % (Auto) 0.1 0.2 % Immature Gran # (Auto) 0.03 H 0.04 H (0.00-0.02) K/uL Neut # (Auto) 14.30 H 12.97 H (1.4-6.5) K/uL Lymph # (Auto) 1.02 L 1.68 (1.2-3.4) K/uL [place] # (Auto) 0.64 H 0.82 H (0.11-0.59) K/uL Eos # (Auto) 0.00 0.03 (0-0.5) K/uL Baso # (Auto) 0.01 0.03 (0-0.2) K/uL Sodium 137 (136-145) mmol/L Potassium 3.6 (3.5-5.1) mmol/L Chloride 105 (98-107) mmol/L Carbon Dioxide 23 (21-32) mmol/L Anion Gap 9.0 (3-11) BUN 12 (7-18) mg/dl Creatinine 0.70 (0.6-1.2) mg/dl Est Cr Clr Drug Dosing 67.9 ml/min Est GFR ( Amer) 103.2 Est GFR (Non-Af Amer) 89.0 BUN/Creatinine Ratio 17.4 (10-20) Glucose 127 H (70-99) mg/dl Calcium 9.5 (8.5-10.1) mg/dl Total Bilirubin 0.6 (0.2-1) mg/dl AST 8 L (15-37) U/L ALT 23 (12-78) U/L Alkaline Phosphatase 58 (45-117) U/L Total Protein 7.0 (6.4-8.2) gm/dl Albumin 3.6 (3.4-5.0) gm/dl Globulin 3.4 (2.5-4.0) gm/dl Albumin/Globulin Ratio 1.1 (0.9-2) Lipase 62 L (73-393) U/L Urine Color Urine Appearance (Clear) Urine pH (4.5-7.5) Ur Specific [place] (1.000-1.030) Urine Protein (Negative) Urine Glucose (UA) (Negative) Urine Ketones (Negative) Urine Blood (Negative) Urine Nitrite (Negative) Urine Bilirubin (Negative) Urine Urobilinogen (Negative) Ur Leukocyte Esterase (Negative) Urine WBC (Auto) (0-5) /hpf Urine RBC (Auto) (0-4) /hpf U Hyaline Cast (Auto) (0-5) /lpf U Epithel Cells (Auto) (0-5) /lpf Urine Bacteria (Auto) (Negative) 01/30/19 Range/Units 17:22 WBC (4.8-10.8) K/uL RBC (4.2-5.4) M/uL Hgb (12.0-16.0) g/dL Hct (37-47) % MCV (80-100) fL MCH (25-34) pg MCHC (32-36) g/dL RDW Std Deviation (36.4-46.3) fL RDW Coeff of Mihir (11.5-14.5) % Plt Count (130-400) K/uL MPV (7.4-10.4) fL Immature Gran % (Auto) % Neut % (Auto) % Lymph % (Auto) % [place] % (Auto) % Eos % (Auto) % Baso % (Auto) % Immature Gran # (Auto) (0.00-0.02) K/uL Neut # (Auto) (1.4-6.5) K/uL Lymph # (Auto) (1.2-3.4) K/uL [place] # (Auto) (0.11-0.59) K/uL Eos # (Auto) (0-0.5) K/uL Baso # (Auto) (0-0.2) K/uL Sodium (136-145) mmol/L Potassium (3.5-5.1) mmol/L Chloride (98-107) mmol/L Carbon Dioxide (21-32) mmol/L Anion Gap (3-11) BUN (7-18) mg/dl Creatinine (0.6-1.2) mg/dl Est Cr Clr Drug Dosing ml/min Est GFR ( Amer) Est GFR (Non-Af Amer) BUN/Creatinine Ratio (10-20) Glucose (70-99) mg/dl Calcium (8.5-10.1) mg/dl Total Bilirubin (0.2-1) mg/dl AST (15-37) U/L ALT (12-78) U/L Alkaline Phosphatase (45-117) U/L Total Protein (6.4-8.2) gm/dl Albumin (3.4-5.0) gm/dl Globulin (2.5-4.0) gm/dl Albumin/Globulin Ratio (0.9-2) Lipase (73-393) U/L Urine Color Yellow Urine Appearance Clear (Clear) Urine pH 6.5 (4.5-7.5) Ur Specific [place] 1.015 (1.000-1.030) Urine Protein Negative (Negative) Urine Glucose (UA) Negative (Negative) Urine Ketones 1+ H (Negative) Urine Blood Trace H (Negative) Urine Nitrite Negative (Negative) Urine Bilirubin Negative (Negative) Urine Urobilinogen Negative (Negative) Ur Leukocyte Esterase Trace H (Negative) Urine WBC (Auto) 1-5 (0-5) /hpf Urine RBC (Auto) 5-10 H (0-4) /hpf U Hyaline Cast (Auto) 1-5 (0-5) /lpf U Epithel Cells (Auto) 5-10 H (0-5) /lpf Urine Bacteria (Auto) Negative (Negative)
[2019-01-31] MEDS: D5W AND 1/2NSS + 20MEQ KCL 20 MEQ/1,000 ML BAG IV SCH ×2 (09:48→21:50)
[2019-01-31] MEDS: CIPROFLOXACIN 400 MG/200 ML BAG IV SCH ×2 (11:11→23:40)
[2019-01-31] MEDS: ACETAMINOPHEN 325 MG TAB PO PRN (16:49)
[2019-02-01] MEDS: ACETAMINOPHEN 325 MG TAB PO PRN (05:57)
[2019-02-01] MEDS: metroNIDAZOLE 500 MG/100 ML BAG IV SCH ×3 (05:58→22:47)
--- NOTE | 2019-02-01 08:11 | Surgery Progress Note ---
Date of Service February 01, 2019 Assessment & Plan (1) Acute appendicitis: This patient had evidence of ruptured appendicitis. I would recommend continuing IV antibiotics for at least 1 more day. Encouraged ambulation. Continue DULCE MARIA drain for now Subjective Feels well today Only abdominal soreness towards the right side Denies nausea and vomiting Feels as though she needs to pass gas DULCE MARIA had 75 cc yesterday and 25 cc today all serosanguineous Physical Exam Gastrointestinal (Abdomen): Inspection/Auscultation: normal bowel sounds; abdomen not distended Percussion/Palpation: + abdomen tender (Minimal right- sided) and abdomen soft Results & Data Vital Signs (Past 12 Hours) Vital Signs Temp Pulse Pulse Resp BP Pulse Ox 02/01/19 07:30 36.8 C 68 18 105/65 95 02/01/19 07:08 36.8 C 75 16 134/66 98 01/31/19 23:18 36.8 C 67 16 109/62 96 01/31/19 20:15 36.8 C 80 16 100/70 94 (1) Acute appendicitis Acute appendicitis type: unspecified acute appendicitis type Qualified Code(s): K35.80 - Unspecified acute appendicitis
[2019-02-01] MEDS: D5W AND 1/2NSS + 20MEQ KCL 20 MEQ/1,000 ML BAG IV SCH ×2 (08:53→22:47)
[2019-02-01] MEDS: CIPROFLOXACIN 400 MG/200 ML BAG IV SCH (11:10)
[2019-02-02] MEDS: CIPROFLOXACIN 400 MG/200 ML BAG IV SCH (00:40)
[2019-02-02] MEDS: metroNIDAZOLE 500 MG/100 ML BAG IV SCH (06:18)
--- NOTE | 2019-02-02 06:33 | Surgery Progress Note ---
Date of Service February 02, 2019 Assessment & Plan (1) Appendicitis: Postoperative day #3, status post laparoscopic appendectomy for perforated appendicitis Doing well DULCE MARIA has had minimal output Can discharge to home on oral antibiotics Activity restrictions discussed Follow-up in 2 weeks Subjective Postoperative day #3, status post laparoscopic appendectomy for perforated appendicitis Doing well Passing flatus and had bowel movement which made her abdomen feel much better Denies nausea and vomiting Tolerating regular diet DULCE MARIA drain output 30 cc last shift and about 60 cc yesterday ulcer Physical Exam Gastrointestinal (Abdomen): Inspection/Auscultation: abdomen not distended Percussion/Palpation: + abdomen tender (Minimal incisional only) and abdomen soft Results & Data Vital Signs (Past 12 Hours) Vital Signs Temp Pulse Resp BP Pulse Ox 02/01/19 23:39 36.8 C 83 16 154/75 H 92
[2019-02-02 07:31] LABS: Basophils # (auto) 0.05 K/uL (0-0.2); Basophils % (auto) 0.7 %; Eosinophils # (auto) 0.15 K/uL (0-0.5); Eosinophils % (auto) 2.2 %; Hematocrit (blood only) 39.7 % (37-47); Hemoglobin 13.7 g/dL (12.0-16.0); Immature Granulocytes # (auto) 0.04 K/uL (0.00-0.02); Immature Granulocytes % (auto) 0.6 %; Lymphocytes # (auto) 1.89 K/uL (1.2-3.4); Lymphocytes % (auto) 27.4 %; Mean Corpuscular Hemoglobin 32.9 pg (25-34); Mean Corpuscular Hgb Conc 34.5 g/dL (32-36); Mean Corpuscular Volume 95.4 fL (80-100); Mean Platelet Volume 8.7 fL (7.4-10.4); Monocytes # (auto) 0.58 K/uL (0.11-0.59); Monocytes % (auto) 8.4 %; Neutrophils % (auto) 60.7 %; Platelet Count 253 K/uL (130-400); RDW Coefficient of Variation 14.4 % (11.5-14.5); RDW Standard Deviation 50.1 fL (36.4-46.3); Red Blood Count 4.16 M/uL (4.2-5.4); White Blood Count 6.91 K/uL (4.8-10.8)
--- NOTE | 2019-02-06 07:34 | Discharge Summary ---
Date of Service February 06, 2019 Admission HPI Per Admitting Provider This is a 68-year-old female who presented to the emergency room with complaint of right lower quadrant pain that began 2 days ago. It was intermittent at first but then it became more continuous and located in the right lower quadrant. It is sharp at times but it is mostly a dull ache. It radiates around to her back on occasion. She has never had pain like this before. It is exacerbated by motion. She has no fever or chills with this. She had no nausea or vomiting. She had diarrhea this morning but there was no melena or hematochezia. She denies dysuria and hematuria. Principal Diagnosis Ruptured acute appendicitis Discharge Data Allergies Allergy/AdvReac Type Severity Reaction Status Date / Time Penicillins Allergy Intermediate RASH Verified 01/30/19 19:48 Consultations 01/30/19 19:00 ED Decision to Admit Stat Procedures Performed Operation Date: 01/30/19 20:00 Actual Procedures p Laparoscopic Appendectomy(Not Applicable) - Seb Parr MD Ordered Studies 01/30/19 18:06 CT abd pelvis wo con Stat Hospital Course (1) Appendicitis: Patient was taken to operating room for laparoscopic appendectomy by Dr. Parr. Patient found to have ruptured acute appendicitis however was able to complete procedure laparoscopically. GABRIELLE drain was placed. She tolerated procedure well and was transferred to recovery room and then to medical/surgical floor for postoperative care. She was started on IV fluids, clear liquids, IV abx, and IV toradol for pain as needed. POD # 1 vitals stable, afebrile, pain moderate. Tolerated clear liquids. Diet was advanced to regular diet. POD # 2 vitals stable, afebrile, IV abx continued. Postoperative day #3 vitals stable, afebrile, gabrielle drain minimal output. Patient was tolerated regular diet and pain controlled. Patient was discharged home with oral abx on POD # 3. Total Time Total Time Spent Total Time Spent (In Minutes): 20 Total Time Includes: Examination of the Patient, Discharge Planning and Medication Reconciliation Discharge Plan Discharge Items Patient Disposition: Home - Self-Care Reason For Visit: RUPTURED APPENDICITIS Discharge Diagnosis: Same Activity: Per Instructions section Non-emergency contact: Surgeon Call non-emergency contact if: your symptoms worsen, your pain is not controlled, your pain is worsening, your pain is concerning for you, you have a fever, your temperature is above 101, your wound has increased redness, your wound has increased drainage and your wound pain has increased Follow-up/Referrals: Jaqueline Ortiz, [Primary Care Provider] - Diet: Regular Addtl Attending Provider Instructions: Post-Surgical ~Discharge Instructions Activity Recommendations: - lifting limitation: (10 pounds for 2 weeks), - exercise/sex/sports limit: (nonstrenuous for 2 weeks), - driving or machine use limit: (none for 1 week), - Shower/bathe limit: (may shower ) Diet: - Resume previous diet SPECIAL CARE INSTRUCTIONS: - May shower. Let water run over area and pat dry. - Leave steri strips on for one week. - If you go home with surgical drain, record output color and amount. Bring record with you to office. Drain will be removed in surgical office if you go home with it. - Call the surgeon's office with any questions or concerns - - (ex. temperature higher than 101 degrees F, excessive bleeding or pain). MEDICATIONS: - Resume previous medications unless instructed otherwise by your surgeon. - Ibuprofen 600 mg every 6 hours with food - Percocet 1 every 4 hours, as needed for pain FOLLOW UP VISIT: - If not already scheduled, please call the office to schedule a two week follow-up appointment. Office number Pending Studies at Discharge: Yes Studies:: pathology Stand-Alone Forms: Call Back Authorization, [facility], Smoking Cessation Medications and DC Order Prescriptions: New metronidazole 500 mg tablet 500 mg PO TID Qty: 21 RF: 0 ciprofloxacin HCl [Cipro] 500 mg tablet 500 mg PO BID Qty: 14 RF: 0 Continued multivitamin Tablet 1 tab PO DAILY RF: 0 cholecalciferol (vitamin D3) [Vitamin D3] 1,000 unit Capsule PO DAILY RF: 0 calcium carb-magnesium carb 250-300 mg Tablet 1 tab PO DAILY RF: 0 Thyroid Supplement 1 tab PO DAILY RF: 0 Discharge Orders: Discharge Order (Routine); Ordered 02/02/19 Ordered By: Seb Parr Admission Data Admit Date/Time: 01/31/19 16:12 Attending Provider: Seb Parr Admit Provider: Seb Parr Primary Care Provider: Jaqueline Ortiz Other Providers: Seb Parr Other Interventions: Discharge Summary Assessment (RN) Last Done: 02/02/19 07:48 DC Date/Time DO NOT enter until pt leaves facility: 02/02/19 09:07
== END 2019-02-02 09:07 | disposition home or self-care (01) | DRG 340 ==
LOC: ED 17:49 → 3W 19:52 → OR 19:52